=== PATIENT | female | born 1955 | race Caucasian/White ===

== ENCOUNTER 2018-09-28 00:54 | Outpatient (CLI) | payer BC, SELFPAY ==
--- NOTE | 2018-09-28 11:12 | DI.MAMMO_ITS ---
SYMPTOMS/DIAGNOSIS: SCREENING, Z12.31 MAMMOGRAM: Mammograms were interpreted according to the usual protocol including computer analysis with CAD system, tomosynthesis and C view imaging. Comparison is made with exams from 2012 through 2017. The breasts are composed of scattered fibroglandular densities, breast density Category B. No suspicious masses or suspicious microcalcifications are seen. There has been no significant change. IMPRESSION: Category I B, negative mammogram. Yearly screening mammography is recommended. [facility] ASSESSMENT OF FINDINGS: Negative. Category 1. Patient will receive a letter notifying them of these results. BI-RADS category B. There are scattered areas of fibroglandular density.
== END 2018-09-28 01:14 ==
PROVIDERS: PCP Family Medicine; Visit Provider Nurse Practitioner Women's Health
DX: Z12.31 Encounter for screening mammogram for malignant neoplasm of breast (principal)
CPT/HCPCS: 77063; 77067

== ENCOUNTER 2019-04-27 11:16 | Outpatient (CLI) | payer MEDICARE, SELFPAY ==
--- NOTE | 2019-04-27 11:18 | DI.RAD_ITS ---
SYMPTOMS/DIAGNOSIS: HEEL PAIN, M79.673, PAIN IN UNSPECIFIED FOOT RIGHT HEEL: Two views were obtained. There is mild soft tissue swelling over the calcaneus posteriorly. Small osteophytes are present at the sites of attachment of the plantar fascia and Achilles tendon on the calcaneus. Small calcific or ossific radiodensity also noted adjacent to the distal aspect of the Achilles tendon. No other significant bony abnormality seen.
== END 2019-04-27 11:36 ==
PROVIDERS: PCP Family Medicine; Visit Provider Family Medicine
DX: M79.671 Pain in right foot (principal); M79.89 Other specified soft tissue disorders; M25.771 Osteophyte, right ankle
CPT/HCPCS: 73650

== ENCOUNTER 2019-05-27 04:16 | Outpatient (CLI) | payer MEDICARE, SELFPAY ==
[2019-05-27 11:19] LABS: ALT 21 U/L (12-78); AST 14 U/L (15-37); Albumin 3.6 g/dL (3.4-5.0); Alkaline Phosphatase 68 U/L (46-116); Anion Gap 6.7 mmol/L (3-11); BUN 20 mg/dL (7-18); Bilirubin, Total 1.2 mg/dL (0.2-1.0); CO2 31.3 mmol/L (21.0-32.0); CREATININE 0.67 mg/dL (0.55-1.02); Calcium 9.1 mg/dL (8.5-10.1); Calculated LDL 110 mg/dL; Chloride 104 mmol/L (98-107); Cholesterol 213 mg/dL (50-200); Glucose 86 mg/dL (70-100); HDL Cholesterol 91 mg/dL (40-60); Potassium 4.8 mmol/L (3.5-5.1); Sodium 142 mmol/L (136-145); TSH (W/Ref FT4) 2.77 uIU/mL (0.36-3.74); Total Protein 7.4 g/dL (6.4-8.2); Triglyceride 61 mg/dL (30-150)
== END 2019-05-27 04:36 ==
PROVIDERS: PCP Family Medicine; Visit Provider Family Medicine
DX: I10 Essential (primary) hypertension (principal); R00.2 Palpitations
CPT/HCPCS: 36415; 80053; 80061; 83721; 84443

== ENCOUNTER 2019-07-18 00:30 | Outpatient (CLI) | payer MEDICARE, SELFPAY ==
--- NOTE | 2019-07-18 07:07 | MERGEMPI_ITS ---
*[facility]* *[facility]* [address] [place] [address] Myocardial Perfusion Imaging - SPECT Joel protocol Date of study: 07/18/2019 *PATIENT PRESENTATION* Height: 167.6cm (66in) Blood Pressure: Weight: 69.5kg (153lb) BSA: 1.81m^2 Referring physician: Cj Saeed Ordering physician: Belén Hairston Impressions: - Minor arrhythmias in early recovery which resolved appropriately. - Normal myocardial perfusion and contraction after maximal exercise. - Low risk of cardiac events. Summary: 1. Myocardial perfusion imaging: No myocardial perfusion defects noted. 2. The calculated left ventricular ejection fraction after stress: 64%. LV global systolic function is normal. No left ventricular regional motion abnormality. 3. Stress ECG conclusions: The stress ECG is negative. Frequent ventricular ectopy with left bundle branch block with an inferior axis QRS morphology suggestiv of outflow tract origin lasting from 2:35 to 3:28 min post peak stress. 4. Stress: The target heart rate was achieved. The heart rate response to stress is normal. There is a normal resting blood pressure with an appropriate response to stress. The patient experienced no chest pain during stress. Exercise capacity is above normal for age. 5. Treadmill exercise testing was performed using the Joel protocol. The patient exercised for 9 min, to protocol stage 3, to a maximal work rate of 11.6mets. Exercise was terminated due to fatigue. Indication: R07.9, Appropriate Use Criteria: A (Appropriate). History: REASON FOR TESTING: FOR 2 YEARS NOW PATIENT HAS BEEN HAVING MIDSTERNAL CHEST FLUTTERING THAT TURNS INTO MIDSTERNAL CHEST PRESSURE THAT LASTS APPROXIMATELY 5 TO 15 MINUTES THAT GOES AWAY BY ITSELF. SHE STATES THIS WILL HAPPEN ONE TO TWO TIMES PER MONTH AND OCCASIONALLY WHEN LYING DOWN AT NIGHT. SHE ALSO REPORTS AN OCCASIONAL PULSING BEHIND MY NECK WITH DIZZYNESS--FEELS LIKE I'M GOING TO GET A HEADACHE. PATIENT DENIES CHEST PAIN/DISCOMFORT UPON ARRIVAL TO TESTING TODAY. SIGNIFICANT PAST MEDICAL HISTORY: PALPITATIONS SMOKING STATUS: RARELY WHILE IN COLLEGE. EXERCISE ROUTINE: PATIENT WALKS 2 MILES PER DAY AND IS VERY ACTIVE IN AND AROUND HER HOME WITH GARDENING/STACKING WOOD/MOWING LAWN ETC. Risk factors: Family history of coronary artery disease. Dyslipidemia. Cholesterol: 213mg/dl. HDL: 91mg/dl. LDL: 110mg/dl. Triglycerides: 61mg/dl. ALLERGIES: NO KNOWN DRUG ALLERGIES. MEDICATIONS: TRAZODONE 12.5 MG PRN, IBUPROFEN 600 MG PRN. Imaging Technique: Protocol: Joel protocol. Acquisition: Gated SPECT; 1 day - rest/stress. The patient was imaged in the supine position. Attenuation correction used. Isotope administration: - Rest. Tc[99m]-sestamibi. Dose: 10.1mCi. Injection time: 09:45 AM. Injection to stress time: 00:45. - Stress. Tc[99m]-sestamibi. Dose: 30mCi. Injection time: 12:23 PM. 1-2 min before end of exercise Baseline ECG: SINUS RHYTHM. HR 61 BPM. Normal ECG. Stress protocol: + +---+ + !Stage !HR !BP (mmHg) ! + +---+ + !Baseline supine !61 !140/96 (111)! + +---+ + !Baseline standing !73 !124/82 (96) ! + +---+ + !Stage I; 1.7mph, 10degrees; 3 min !112!152/78 (103)! + +---+ + !Stage II; 2.5mph, 12degrees; 3 min !118!162/68 (99) ! + +---+ + !Stage III; 3.4mph, 14degrees; 3 min!133!174/82 (113)! + +---+ + !Recovery; 1 min !113!164/68 (100)! + +---+ + !Recovery; 3 min !85 !160/70 (100)! + +---+ + !Recovery; 6 min !74 !138/64 (89) ! + +---+ + * Stress results: STRESS TEST ENDED IN 9 MINUTES 51 SECONDS DUE TO FATIGUE. NORMAL HEART RATE AND BLOOD PRESSURE RESPONSE TO EXERCISE. MAX HEART RATE: 150. 96 % OF TARGET HEART RATE ACHIEVED. MET'S: 11.56. RARE PVC'S WITH EXERCISE. TRIGEMINY AT 2 MINUTES 35 SECONDS OF RECOVERY, THEN QUADRAGEMINY AT 3 MINUTES 17 SECONDS OF RECOVERY, THEN SINUS RHYTHM AT 3 MINUTES 28 SECONDS OF RECOVERY. NO ANGINA. NO SIGNIFICANT ST SEGMENT CHANGES. ABOVE AVERAGE FUNCTIONAL CAPACITY. Maximal heart rate during stress was 150bpm (97% of maximal predicted heart rate). The maximal predicted heart rate was 155bpm. The target heart rate was achieved. The heart rate response to stress is normal. There is a normal resting blood pressure with an appropriate response to stress. The rate-pressure product for the peak heart rate and blood pressure was 81722jg Hg/min. The patient experienced no chest pain during stress. Exercise capacity is above normal for age. Stress ECG: The stress ECG is negative. Frequent ventricular ectopy with left bundle branch block with an inferior axis QRS morphology suggestiv of outflow tract origin lasting from 2:35 to 3:28 min post peak stress. Myocardial perfusion: Imaging information: gated. The image quality was good. Left ventricular size is normal. No myocardial perfusion defects noted. Ventricular Function (Wall Motion): The calculated left ventricular ejection fraction after stress: 64%. LV global systolic function is normal. No left ventricular regional motion abnormality. Study data: Cj Saeed MD supervised and was readily available during the procedure. This study was interpreted by [facility]. Study status: Routine. Consent: The risks, benefits, and alternatives to the procedure were explained to the patient and informed consent was obtained. Procedure: Initial setup. A baseline ECG was recorded. Surface ECG leads and manual cuff blood pressure measurements were monitored. Heart sounds: Normal. Lung sounds: Normal. Treadmill exercise testing was performed using the Joel protocol. The patient exercised for 9 min, to protocol stage 3, to a maximal work rate of 11.6mets. Exercise was terminated due to fatigue. Study completion: All catheters inserted during the procedure were removed. The patient tolerated the procedure well and was discharged from the lab. Discharge: The patient left the laboratory in stable condition. Birthdate: Patient birthdate: 1955. Sex: Gender: female. Study date: Study date: 07/18/2019. Study time: 00:01 AM. Signature Documentation: - The imaging portion of this study was interpreted by Nuclear Fire Coordinator Cj Saeed MD. - The Stress ECG portion of this study was interpreted by Cj Saeed MD. Electronically signed by Cj Saeed 07/18/2019 13:38
== END 2019-07-18 00:50 ==
PROVIDERS: PCP Family Medicine; Visit Provider Family Medicine
DX: R07.9 Chest pain, unspecified (principal); R00.2 Palpitations; E78.5 Hyperlipidemia, unspecified; Z82.49 Family history of ischemic heart disease and other diseases of the circulatory system
CPT/HCPCS: 78452; 93016; 93018; 93017

== ENCOUNTER → 2019-08-08 10:22 | Outpatient (BNVA) | payer MEDICARE, SELFPAY | PROVIDERS: PCP Family Medicine; Referring Provider Family Medicine; Visit Provider Physical Therapy Assistant | DX: R10.13 Epigastric pain (principal); Z12.11 Encounter for screening for malignant neoplasm of colon | CPT/HCPCS: 99213 ==

== ENCOUNTER 2019-08-18 09:14 | Day surgery (SDC) | payer MEDICARE, SELFPAY ==
[2019-08-18 09:36] VITALS: BP 105/42; PULSE 68; RESP 15; TEMP 36.8; O2SAT 98
[2019-08-18] MEDS: Lactated Ringers 1,000 ML 80 ML IV (10:23)
[2019-08-18] MEDS: Lidocaine 2% Viscous 15 ML CUP (11:46)
--- NOTE | 2019-08-18 11:53 | STOM_PTH ---
PATIENT: Meera Gill LOC: [facility] U#:[id number] AGE/SX: 63/F ROOM: RE08/18/[address]: Elsa Fernández : 1955 BED: DIS: 08/18/2019 SPEC #: [id number] RECD: 08/18/19 13:07 STATUS: DWAYNE RE #: [id number] RICK: 08/18/19 11:[address]: Elsa Fernández DEPT: Surgical Specimen RECD BY: Meera Byrne ENTERED: 08/18/19 13:08 SP TYPE: STOMACH OTHR DR: Belén Hairston MD, DC Tissues: 1 - BIOPSY BOWEL 2 - STOMACH BIOPSY 3 - STOMACH BIOPSY 4 - ESOPHAGUS BIOPSY 5 - ESOPHAGUS BIOPSY Procedures: GROSS AND MICRO LEVEL 4 Comments: [id number]
--- NOTE | 2019-08-18 12:28 | W.PM.DSUDISC ---
Discharge Plan Disposition Patient Disposition: HOME Condition: Good Discharge Details Reason For Visit: stomach and colon scope w/ biopsy Attending Provider: Elsa Fernández Primary Care Provider: Belén Hairston Home Meds and New Rx's Prescriptions: Continued trazodone 50 mg tablet 25 mg PO TID PRNRF: 0 Discontinued polyethylene glycol 3350 17 gram/dose powder 238 g PO ONCE Qty: 238 RF: 0 bisacodyl [Dulcolax (bisacodyl)] 5 mg tablet,delayed release (DR/EC) 5 mg PO ONCE Qty: 4 RF: 0 Discharge Orders Discharge Orders: Discharge Order (Routine); Ordered 08/18/19 Ordered By: Elsa Fernández DS: Diagnosis Discharge Diagnosis (1) Non-cardiac chest pain: Status: Acute (2) Colon cancer screening: Status: Acute
--- NOTE | 2019-08-18 12:32 | W.PM.ENDDOP ---
Date of service: 08/18/19 Time of Service: 12:32 Endoscopy Report DATE OF PROCEDURE: 08/18/19 PRE-OP DIAGNOSIS: non cardiac chest pain/colon cancer screen POST-OP DIAGNOSIS: same PROCEDURE: egd adb FLOR s SURGEON: Elsa Fernández ANESTHESIA: GETA ESTIMATED BLOOD LOSS: 1 PATHOLOGY: other COMPLICATIONS: None DISPOSITION: same day COLONOSCOPY RETRACTION TIME: 10 mins PROCEDURE DESCRIPTION: After informed consent was obtained the patient was take to the procedure room and placed in a supine position. Monitors were applied and a time out was done. The patients name, date of , procedure type, allergies to medications and metal in their body was reviewed. A bite block was placed and the patient was sedated. Once sedated and comfortable the gastroscope was advanced through the oropharynx which was grossly normal into the esophagus. The proximal and mid-esophagus were nl. In the distal esophagus there was nl noted-there is no stricture or hiatal hernia. The scope was advanced into the stomach and through the pylorus into the 3rd portion of the duodenum. The duodenum was noted to be nl. Biopsies were done-all specimens are retrieved and no bleeding is noted.. The scope was retracted back into the stomach and biopsies were done to rule out H. pylori. There were no ulcers. The scope was retroflexed. The cardia and fundus were noted to be normal. There no a hiatal hernia noted. The scope was retracted back into the esophagus and biopsies were done of the GE junction to rule out Frost's. The Z line was regular. This is essentially a nl exam- path pd. The scope was exchanged. Rectal exam was done. External exam was normal. Internal exam revealed a normal sphincter tone and no palpable masses, a few small old ext. hemorrhoidal tags. The scope was then introduced and retrofelexed. no internal hemorrhoids were identified. The scope was then advanced to the cecum moderate difficulty. The colon is extremely tortuous . the TI and appendiceal orifice were identified. The prep was good . The scope was then slowly retracted over 10 minutes back into the rectum. There are no polyps, diverticuli or AVMs identified. The scope was removed and the patient was woken up and taken back to Same day surgery in stable condition. The patient tolerated the procedure well and there were no immediate complications. Follow up: The patient should follow up in 10 years unless they develop changes in bowel habits or other new gastrointestinal complaints. Pt will receive a letter in 2-3 wks w/ Bx results
[2019-08-18 13:15] VITALS: BP 110/32; BP 128/58; PULSE 59; PULSE 61; RESP 17; RESP 18; TEMP 36.2; TEMP 36.3; O2SAT 100; O2SAT 99
== END 2019-08-18 14:00 | disposition home or self-care (01) ==
PROVIDERS: PCP Family Medicine; Visit Provider Surgery
PROC: (CPT 43239; principal; 2019-08-18 10:00)
DX: Z12.11 Encounter for screening for malignant neoplasm of colon (principal); K63.89 Other specified diseases of intestine; R10.13 Epigastric pain; K21.0 Gastro-esophageal reflux disease with esophagitis; F10.10 Alcohol abuse, uncomplicated
CPT/HCPCS: 43239; G0121; 88305; J2250; J3010

== ENCOUNTER 2020-03-09 02:12 | Outpatient (CLI) | payer MEDICARE, SELFPAY | END 2020-03-09 02:32 | PROVIDERS: PCP Family Medicine; Visit Provider Family Medicine | DX: R00.0 Tachycardia, unspecified (principal) | CPT/HCPCS: 93225 ==

== ENCOUNTER 2020-03-09 02:26 | Outpatient (CLI) | payer MEDICARE, SELFPAY ==
[2020-03-09 10:41] LABS: HCT 42.3 % (36.0-46.0); HGB 13.9 g/dL (12.0-15.5); Mean Corp. HGB Concentration 32.9 g/dL (32.0-36.0); Mean Corpuscular Hemoglobin 28.7 pg (27.0-33.0); Mean Corpuscular Volume 87.2 fL (80-95); Mean Platelet Volume 9.4 fL (8.0-11.0); Platelet Count 236 x1000/uL (130-400); RBC 4.85 m/cumm (4.00-5.20); RBC Distribution Width 13.3 % (11.7-14.6); White Blood Cell Count 5.21 k/cumm (4.4-10.8)
[2020-03-09 11:43] LABS: ALT 21 U/L (14-59); AST 18 U/L (15-37); Albumin 3.6 g/dL (3.4-5.0); Alkaline Phosphatase 79 U/L (46-116); Anion Gap 6.4 mmol/L (3-11); BUN 15 mg/dL (7-18); CO2 29.6 mmol/L (21.0-32.0); Calcium 9.2 mg/dL (8.5-10.1); Chloride 102 mmol/L (98-107); Glucose 93 mg/dL (74-106); Potassium 4.1 mmol/L (3.5-5.1); Sodium 138 mmol/L (136-145); TSH (W/Ref FT4) 2.37 uIU/mL (0.36-3.74); Total Protein 7.5 g/dL (6.4-8.2)
== END 2020-03-09 02:46 ==
PROVIDERS: PCP Family Medicine; Visit Provider Family Medicine
DX: R00.0 Tachycardia, unspecified (principal)
CPT/HCPCS: 36415; 80053; 85027; 84443; 93225

== ENCOUNTER 2020-03-13 10:34 | Outpatient (CLI) | payer MEDICARE, SELFPAY ==
--- NOTE | 2020-03-13 12:32 | W.HOLTRPT ---
Date of service: 03/13/20 Time of Service: 12:32 Holter Monitor Report Holter Monitor Note: There is a 48-hour Holter monitor ordered for indication of tachycardia. ?The patient was in normal sinus rhythm for the majority of the recording. Average heart rate 70 bpm ?There were 16 episodes of supraventricular tachycardia with the longest lasting 6 minutes. ?There were no episodes of ventricular tachycardia and occasional (1.5%) single ventricular ectopic beats. ?There was no evidence of atrial fibrillation, no pauses greater than 3 seconds and no evidence of high degree heart block. ?Patient diary events were associated with supraventricular tachycardia as well as sinus rhythm with PVCs.
== END 2020-03-13 10:54 ==
PROVIDERS: PCP Family Medicine; Visit Provider Family Medicine
DX: R00.0 Tachycardia, unspecified (principal); I47.1 Supraventricular tachycardia; I49.3 Ventricular premature depolarization
CPT/HCPCS: 93227; 93226

== ENCOUNTER 2020-04-19 02:57 | Outpatient (CLI) | payer MEDICARE, SELFPAY ==
--- NOTE | 2020-04-19 08:30 | DI.US_ITS ---
APPROVED REPORT EXAM: Comprehensive 2D, Doppler, and color-flow Echocardiogram Patient Location: Out-Patient Brim Blocker: Tamanna Yap RDCS (AE) Indications: Murmur Other Information Study Quality: Good Conclusion Left Ventricle : The left ventricle is normal size. The left ventricular systolic function is normal. The left ventricular ejection fraction is within the normal range. There is normal left ventricular wall thickness. There is normal LV segmental wall motion. The left ventricular diastolic function is normal. LVEF is 45-50%. Right Ventricle : The right ventricle is normal size. The right ventricular systolic function is norm al. The RVSP is 19.9 mmHg. Atria : The left atrium size is normal. The right atrium size is normal. Valves: There are no hemodynamically significant valvular lesions. Pericardium : Trivial to Small circumferential pericardial effusion. Great Vessels : IVC is normal in size and collapses >50% with inspiration. There is no prior study available for comparison. Wall motion Left Ventricle The left ventricle is normal size. The left ventricular systolic function is normal. The left ventric ular ejection fraction is within the normal range. There is normal left ventricular wall thickness. T here is normal LV segmental wall motion. The left ventricular diastolic function is normal. There is no ventricular septal defect visualized. LVEF is 45-50%. Right Ventricle The right ventricle is normal size. The right ventricular systolic function is normal. The RVSP is 19 .9 mmHg. Atria The left atrium size is normal. The right atrium size is normal. The interatrial septum is intact wit h no evidence for an atrial septal defect. Aortic Valve The aortic valve is normal in structure. There is no aortic valvular stenosis. No aortic regurgitatio n is present. Mitral Valve There is mitral annular calcification. No evidence of mitral valve stenosis. Trace mitral regurgitati on. Tricuspid Valve The tricuspid valve is normal in structure. There is no tricuspid valve stenosis. Trace to mild tricu spid regurgitation. Pulmonic Valve Pulmonic valve is not well visualized. There is no pulmonic valvular stenosis. There is no pulmonic v alvular regurgitation. Great Vessels The aortic root is normal in size. The ascending aorta is normal in size. Aortic arch is normal in ca liber. IVC is normal in size and collapses >50% with inspiration. Pericardium Trivial to small circumferential pericardial effusion. 2D Dimensions IVSD d PLAX 0.93 cm F: 0.6-1.0 LV Vol A2C d MOD 88.4 mL LVPW d PLAX 0.93 cm F: 0.6 - 1.0 LV Vol A4C d MOD 85.7 mL LVID d PLAX 4.45 cm F: 3.8 - 5.2 LA vol/ BSA A2C s A-L 22.0 mL/m2 LVDs 3.10 cm F: 2.2 - 3.5 LA vol/ BSA A4C s A-L 22.0 mL/m2 Ao Root d 2.32 cm F: 2.7 - 3.3 LA Vol/ BSA Biplane s A-L 23.5 mL/m2 RA Area A4C 15.16 cm2 LA Area A4C s MOD 15.66 cm2 RA Vol/ BSA A4C s A-L 21.1 mL/m2 LA Area A2C s MOD 14.65 cm2 Ao Asc Diam d 2.97 cm F: 2.3 - 3.1 LV EF A4C MOD 45.5 % LV EF Teichholz 57.7 % LV EF A2C MOD 49.1 % LVEF (Swan's) 47.57 % F: 54 - 74 LV EF Biplane MOD 47.6 % LV Volume 72.01 mL F: 46 - 106 SV 43.78 mL LV Volume Index 40.68 mL/m2 F: 29 - 61 SV Index 24.73 mL/m2 LV Vol Biplane MOD 92.0 mL FS 30.15 % M-Mode TAPSE 1.78 cm (M/F) >1.7 LV Diastology MV E' medial 0.078 (>0.07 m/s) E/A Ratio 1.2 LV E/e MED 7.40 (<14) MV E Vmax 0.58 (0.4-1.3 m/s) MV E' lateral 0.090 (>0.1 m/s) MV A Vmax 0.50 (0.4-1.3 m/s) LV E/e LAT 6.50 (<14) MV E/A Ratio 1.13 MV E/E' medial 7.45 MV E/E' lateral 6.50 Aortic Valve LVOT Area 3.40 cm2 AoV Area Vmax 2.58 cm2 LVOT Vmax 1.13 m/s AoV Area/ BSA (Vmax) 1.46 cm2/m2 LVOT Mean Stephen. 0.77 m/s MARY ALICE Mean Stephen. 2.41 cm2 LVOT Peak Grad 5.1 mmHg MARY ALICE Mean Stephen. Index 1.36 cm2/m2 LVOT Mean Grad 2.7 mmHg LVOT VTI 0.237 m LVOT Diam s 2.05 cm AoV Vmax 1.49 m/s Velocity Ratio 0.75 AoV Mean Stephen. 1.09 m/s AoV Peak Grad 8.9 mmHg LVOT SV 80.68 mL AoV Mean Grad 5.1 mmHg AoV VTI 0.278 m AoV Area VTI 2.90 cm2 AoV Area/ BSA (VTI) 1.64 cm/m2 Mitral Valve MV DT 203 (160-240 msec) MV PHT 59 msec MV Area PHT 3.74 cm2 Pulmonary Valve PV Vmax 0.68 (0.5-1.5 m/s) RVOT Peak Gr. 1.33 mmHg PV Peak Grad 1.9 mmHg RVOT Mean Gr. 0.55 mmHg PV Mean Grad 1.3 mmHg RVOT VTI 0.131 m PV VTI 0.146 m RVOT Vmax 0.58 m/s Tricuspid Valve TR Peak Grad 16.8 mmHg TR Vmax 2.05 m/s RA Pressure 3.00 mmHg RVSP (TR) 19.9 mmHg
== END 2020-04-19 03:17 ==
PROVIDERS: PCP Family Medicine; Visit Provider Family Medicine
DX: R01.1 Cardiac murmur, unspecified (principal); I47.1 Supraventricular tachycardia; R00.0 Tachycardia, unspecified
CPT/HCPCS: 93306

== ENCOUNTER 2020-04-19 03:02 | Outpatient (CLI) | payer MEDICARE, SELFPAY ==
--- NOTE | 2020-04-19 12:05 | DI.MAMMO_ITS ---
EXAM: MAMMO SCREENING CLINICAL HISTORY: screening,z12.39 TECHNIQUE: Mammograms were interpreted according to the usual protocol including computer analysis w [employer] CAD system, tomosynthesis and C-view imaging. COMPARISON: 2009 through 2017 FINDINGS: The breasts are composed of scattered fibroglandular densities, Breast Density category B. No suspicious masses or suspicious microcalcifications are seen. No skin thickening or abnormal axillary lymph nodes are seen. There has been no significant change from prior exams. IMPRESSION: BI-RADS Category 1 - Negative Yearly screening mammography is recommended. Breast Density Category B, scattered fibroglandular densities.
== END 2020-04-19 03:22 ==
PROVIDERS: PCP Family Medicine; Visit Provider Family Medicine
DX: Z12.31 Encounter for screening mammogram for malignant neoplasm of breast (principal)
CPT/HCPCS: 77063; 77067

== ENCOUNTER 2020-05-09 16:40 | Emergency (ER) | payer MEDICARE, SELFPAY ==
[2020-05-09 16:52] VITALS: BP 118/79; PULSE 77; RESP 18; TEMP 36.5; O2SAT 95
--- NOTE | 2020-05-09 17:13 | ED.GENADUL_ITS ---
Discharge Plan Disposition Patient Disposition: HOME Condition: Stable Discharge Details Chief Complaint: EyeProblem Clinical Impression: Allergic reaction to insect sting Primary Care Provider: Belén Hairston ED Provider: Gunner Cobb Home Meds and New Rx's Prescriptions: New prednisone 20 mg tablet 40 mg PO DAILY 5 Days Qty: 10 RF: 0 Continued diphenhydramine HCl [Benadryl] 25 mg Capsule 25 mg PO PRN PRNRF: 0 trazodone 50 mg tablet 25 mg PO TID PRNRF: 0 Discharge Instructions Additional Instructions: Apply cool compress to area to reduce swelling. I recommend you take famotidine available [id number] 20 mg twice a day for approximately 5 days time. Please take prednisone as prescribed. You may continue to use Benadryl 25 to 50 mg, particularly at bedtime to reduce the itching. Return for difficulty swallowing, increased swelling, or any other acute co ncerns. Medical Decision Making 64-year-old female with right periorbital edema after insect/hymenoptera bite yesterday. No systemic reaction. No oropharyngeal involvement. The globe of the eye is unremarkable. We will treat with a small burst of steroid, antihistamine. She will use cold compresses at home. She understands homecare as well as indications to seek reevaluation. HPI General Mode of arrival: ambulatory . Date/Time Provider Initiated Documentation: 05/09/20 16:40 . Limitations to Documentation: no limitations . Information obtained by: patient . History of Present Illness 64 year old F presents to the emergency department with the chief complaint of Right eye swelling after bee sting yesterday, described as moderate, Quality is described as constant, and is localized to the eyes and right. Patient reports no radiation. Patient started experiencing this hour(s) and it has been constant. No relieving factors improve symptom(s), No exacerbating factors reported . Patient notes denies fever/chills and headaches. Patient did receive the following treatments prior to arrival, other (Benadryl) Related Data Home Medications Medication Instructions Recorded Confirmed trazodone 25 mg PO TID PRN 08/15/19 03/15/20 diphenhydramine HCl [Benadryl] 25 mg PO PRN PRN 05/09/20 05/09/20 prednisone 40 mg PO DAILY 5 Days #10 tab 05/09/20 Previous Rx's Medication Instructions Recorded prednisone 40 mg PO DAILY 5 Days #10 tab 05/09/20 Allergies Allergy/AdvReac Type Severity Reaction Status Date / Time cat dander Allergy itching Verified 05/09/20 16:56 eyes, sneeze, General Stated Complaint: EyeProblem TESSA: 4 Review of Systems Narrative: No significant change to vision. No other injury. No difficulty swallowing or breathing. 4 systems reviewed and otherwise negative [facility] Medical History Colon cancer screening (Acute) Elbow tendinitis (Inactive) right elbow; secondary to weight lifting Endometriosis (Inactive) Non-cardiac chest pain (Acute) Palpitations (Inactive) worse in the evening; Holter showed PAC,PVC,PST; event monitor cancelled by patient Right upper quadrant abdominal tenderness (Inactive) neg. U/S Surgical History (Updated 08/18/19 @ 09:35 by Precious Matias RN) History of bilateral ligation of fallopian tubes (Inactive) History of colonoscopy (Chronic) Family History Mother , age 91 No problems noted. Father No problems noted. Sister Depression Substance abuse Brother No problems noted. Maternal Grandfather , age 80 Alcohol abuse Cancer Paternal Grandfather , 70? Cancer [place] lung Maternal Grandmother , 81? Cancer Paternal Grandmother , age 91 No problems noted. Social History (Updated 08/08/19 @ 11:00 by CHRISTINA Mercado) Smoking/Tobacco Use Status: Former Tobacco Use Tobacco: How many years used: 2 Second Hand Exposure: Yes Alcohol Intake: current Alcohol Intake frequency: a few times a week Alcohol type: hard liquor Details: She is currently working on cutting back Drug use: Occasionally Substance use type: marijuana Caregiver/Support person: No Household members: spouse Housing: house Communication Needs: None Do you need help understanding health information?: Never Pets and animals: Yes Pets and animals: dog(s) Sexually active: Yes Do you think of yourself as: straight/heterosexual Current gender identity: female What is your relationship status?: How often do you talk on the phone with friends or family?: three or more times per week How often do you get together with friends or relatives?: twice per week How often do you attend hindu or uatsdin services?: decline to answer Do you belong to any clubs or organized social groups?: decline to answer Panel score (0-1 are the most socially isolated patients): 2 What type of physical activity do you participate in: walking, bicycling and other Duration: 30-45 minutes/day Frequency: 5-6 times per week Bonny/Orthodox: Jehovah'S Witness Special bonny needs: No Agree to transfusion: No Do you feel safe at home: Yes Do you feel safe in your relationship?: Yes Exam Narrative Exam Narrative: GEN: awake, alert, oriented 3. Pleasant, well groomed, interactive. HEAD: Normocephalic, atraumatic ENT: Mucous membranes moist, oropharynx unremarkable, External ear exam unremarkable EYES: PERRL, EOMI. right periorbital edema with mild erythema. Probable envenomation site right upper lateral eyelid. NECK: Full ROM, no ALEKSANDER, no menigismus Neuro: Grossly normal neurologic exam, conversant, interactive. Psych: Speech fluent, thoughts congruent, affect normal Course Vital Signs Vital signs: Vital Signs Temperature 36.5 C 05/09/20 16:52 Pulse 77 05/09/20 16:52 Respiratory Rate 18 05/09/20 16:52 Blood Pressure 118/79 05/09/20 16:52 Pulse Oximetry 95 05/09/20 16:52 Temperature 36.5 C 05/09/20 16:52 Temperature Source Temporal Artery Scan 05/09/20 16:52 Pulse 77 05/09/20 16:52 Respiratory Rate 18 05/09/20 16:52 Blood Pressure 118/79 05/09/20 16:52 Blood Pressure Position Sitting 05/09/20 16:52 Pulse Oximetry 95 05/09/20 16:52 Oxygen Delivery Method Room Air 05/09/20 16:52 Oxygen Flow Rate 0 05/09/20 16:52
[2020-05-09 17:32] VITALS: BP 118/79; PULSE 77; RESP 18; TEMP 36.5; O2SAT 95
[2020-05-09] MEDS: predniSONE 20 MG TAB 60 MG PO (17:32)
== END 2020-05-09 17:34 | disposition home or self-care (01) ==
PROVIDERS: Emergency Provider Emergency Medicine; PCP Family Medicine
DX: T63.441A Toxic effect of venom of bees, accidental (unintentional), initial encounter (principal); H05.221 Edema of right orbit
CPT/HCPCS: 99283; J7512

== ENCOUNTER 2021-06-19 02:43 | Outpatient (CLI) | payer MEDICARE, SELFPAY ==
[2021-06-19 15:45] LABS: Hemoglobin A1C 5.4 % (<5.7)
[2021-06-19 16:37] LABS: ALT 19 U/L (14-59); AST 17 U/L (15-37); Albumin 3.7 g/dL (3.4-5.0); Alkaline Phosphatase 65 U/L (46-116); Anion Gap 6.8 mmol/L (3-11); BUN 14 mg/dL (7-18); Bilirubin, Total 0.7 mg/dL (0.2-1.0); CO2 32.2 mmol/L (21.0-32.0); CREATININE 0.8 mg/dL (0.55-1.02); Calcium 9.1 mg/dL (8.5-10.1); Chloride 105 mmol/L (98-107); Glucose 76 mg/dL (74-106); Potassium 3.7 mmol/L (3.5-5.1); Sodium 144 mmol/L (136-145); Total Protein 7.4 g/dL (6.4-8.2)
== END 2021-06-19 02:44 | disposition home or self-care (01) ==
LOC: LBO 02:43
PROVIDERS: PCP Family Medicine; Visit Provider Family Medicine
DX: E11.9 Type 2 diabetes mellitus without complications (principal); R00.0 Tachycardia, unspecified; Z00.00 Encounter for general adult medical examination without abnormal findings
CPT/HCPCS: 36415; 80053; 83036

== ENCOUNTER → 2022-05-14 09:36 | Outpatient (CLI) | payer MEDICARE, SELFPAY ==
--- NOTE | 2022-05-14 09:15 | DI.RAD_ITS ---
Exam(s) XR HIP LT 1V EXAM: XR HIP LT 1V CLINICAL HISTORY: b/l hip pain M25.552 PAIN LEFT HIP. TECHNIQUE: 2D digital imaging was performed. COMPARISON: No exams were available for comparison FINDINGS: Single lateral view of the left hip: No evidence of fracture. No joint space narrowing. No osteophytes. Bone density normal. IMPRESSION: DATA REPOSITORY: RADIATION DOSE DELIVERED:
--- NOTE | 2022-05-14 09:15 | DI.RAD_ITS ---
Exam(s) XR HIP RT COMPLETE AP PELVIS EXAM: XR HIP RT COMPLETE AP PELVIS CLINICAL HISTORY: biateral hip pain M25.551 PAIN RT HIP. TECHNIQUE: 2D digital imaging was performed. COMPARISON: No exams were available for comparison FINDINGS: There is a large calcific density just right of center of the pelvis measuring 5 x 5 cm, most probabl y a calcified uterine fibroid. No evidence of pelvic nor hip fractures. No hip joint space narrowing. Lateral view of the right hi p does not reveal osteophytes. Also no bony excrescence to suggest CAM-type DB. IMPRESSION: No significant osseous findings in the pelvis and right hip. 5 cm intrapelvic calcification which is probably within a large uterine fibroid. DATA REPOSITORY: RADIATION DOSE DELIVERED:
== END ==
PROVIDERS: PCP Family Medicine; Visit Provider Family Medicine
DX: M25.551 Pain in right hip (principal); M25.552 Pain in left hip; M61.48 Other calcification of muscle, other site
CPT/HCPCS: 73501; 73502

== ENCOUNTER → 2022-05-26 01:41 | Outpatient (CLI) | payer MEDICARE, SELFPAY ==
--- NOTE | 2022-05-26 08:30 | DI.MAMMO_ITS ---
Exam(s) MAMMO SCREENING EXAM: MAMMO SCREENING CLINICAL HISTORY: screening, Z12.39 TECHNIQUE: Bilateral full field digital CC and MLO mammographic images were obtained with 3D tomosyn thesis and utilizing computer aided detection (CAD). COMPARISON: Available for comparison. FINDINGS: Masses/Architectural Distortion: None seen. Microcalcifications: No suspicious pleomorphic-type are seen. Skin Thickening/Nipple Retraction: None. IMPRESSION: 1. No significant interval change with no specific features of malignancy noted. 2. Unless there is more urgent need, screening mammography is recommended, as per [employer] guidelines. BI-RADS Category 1 - Negative Breast Density - Category B - Scattered areas of fibroglandular density Breast density category C or D implies that the patient has dense breast tissue. Dense breast tissue is very common and is not abnormal but dense breast tissue can make it harder to find cancer on a ma mmogram. Also, dense breast tissue may increase their breast cancer risk. This information about the result of the mammogram report was provided to the patient to raise their awareness. Use this report when you speak with the patient about their risks for breast cancer, which includes their family hist ory. At that time, you may recommend for more screening tests (Ultrasound or MRI) as they might be us eful based on their risk. A negative radiographic report should not delay biopsy if a dominant or clinically suspicious mass is present. Up to ten percent of cancers are not identified on mammography. A negative report may reinforce clinical impression. Adenosis and dense breasts may obscure an underlying neoplasm. False positive reports average 6 to 10%. Patient will receive a letter notifying them of these results.
== END ==
PROVIDERS: PCP Family Medicine; Visit Provider Family Medicine
DX: Z12.31 Encounter for screening mammogram for malignant neoplasm of breast (principal)
CPT/HCPCS: 77063; 77067

== ENCOUNTER 2022-06-17 23:12 | Emergency (ER) | payer MEDICARE, SELFPAY ==
--- NOTE | 2022-06-17 23:00 | RT.EKG_ITS ---
APPROVED REPORT Exam: Resting ECG Reason for Exam: heavy chest Patient Location: E HR:60 bpm ECG Measurements Heart Rate 60 AXIS NJ 190 P 35 QRSd 94 QRS 62 QT 415 T 52 QTc 415 Conclusion Sinus rhythm...normal P axis, V-rate 60- 99 Probable left atrial enlargement...P >50mS, <-0.10mV V1 Low voltage, precordial leads...precordial leads <1.0mV Physician: inverted t wave in V1. no stemi
[2022-06-17 23:16] VITALS: BP 127/60; PULSE 73; RESP 16; TEMP 36; O2SAT 97
[2022-06-17] MEDS: Normal Saline 1,000 ML 1000 ML IV (23:30)
[2022-06-17] MEDS: Ondansetron 4 MG/2 ML VIAL IVP (23:30)
[2022-06-17 23:35] LABS: Abs Immature Grans 0.02 10^3/uL (0.0-0.06); Absolute Basophil Count 0.02 10^3/uL (0.0-0.2); Absolute Eosinophil Count 0.02 10^3/uL (0.0-0.7); Absolute Lymphocyte Count 1.08 10^3/uL (1.2-3.4); Absolute Monocyte Count 0.28 10^3/uL (0.1-0.8); Absolute Neutrophil Count 7.09 10^3/uL (1.2-6.7); Basophils % 0.2; Eosinophils % 0.2; HCT 38.7 % (36.0-46.0); HGB 12.7 g/dL (11.2-15.7); Immature Grans % 0.2; Lymphocytes % 12.7; MCH 28.5 pg (27.0-33.0); MCHC 32.8 % (32.0-36.0); MCV 87 fL (80-95); MPV 9.5 fL (8.0-11.0); Monocytes % 3.3; Neutrophils % 83.4; Platelet Count 178 10^3/uL (130-400); RBC 4.46 10^6/uL (3.93-5.22); RDW 12.7 % (11.7-14.6); RDW-SD 40.4 fL; WBC 8.51 10^3/uL (4.4-10.8)
--- NOTE | 2022-06-17 23:59 | W.ED.GENAD ---
Discharge Plan Disposition Patient Disposition: HOME Condition: Good Discharge Details Clinical Impression: Adverse effect of cannabis, Nausea & vomiting Primary Care Provider: Belén Hairston ED Provider: Derik Clayton Home Meds and New Rx's Prescriptions: No Action Shingrix (PF) 50 mcg/0.5 mL suspension for reconstitution 0.5 ml IM ONCE Qty: 1 1RF Rx Instructions: as a single dose. Repeat in 2 months estradiol [Yuvafem] 10 mcg tablet 10 mcg vaginal .3 times weekly Qty: 36 4RF Discharge Instructions Instructions: Acute Nausea and Vomiting (ED) Additional Instructions: At this time your symptoms have notably improved. They were likely secondary to the edible marijuana use that was consumed. It would probably be best to avoid this in the future. Please take the Zofran as needed for nausea. If you notice any worsening of your symptoms, or any new symptoms such as vomiting, diarrhea, fever, chills, shortness of breath, chest pain, numbness, weakness, or fainting , please return immediately to the emergency department for reevaluation. Please follow up with your primary care provider as soon as possible for reassessment and reevaluation. As always, it was a pleasure participating in your medical care today. Referrals: Belén Hairston MD, [place] [Primary Care Provider] - Medical Decision Making 66-year-old female with a past medical history of estradiol use, off who presents today for evaluation of nausea, vomiting, dizziness after eating edibles. Patient states that she has had a notable amount of stress in her life over the last few weeks, and this evening she and her sawed and ate a marijuana laced muffin. They both have the same amount. He was relatively unaffected, however about an hour after she ate the edible she began having nausea, vomiting and notable dizziness. She vomited for the next 2 to 3 hours, and was unable to get up or walk around secondary to this. She admits to a small amount of chest pressure, but denies any chest pain. She denies any headache or vision changes. Dizziness is made worse when she looks around rapidly. Nausea and vomiting is made worse when she stands up quickly. She states that she has had edible marijuana in the past a few years ago, and she had similar symptoms, but they were not as severe as this episode. She also states that she ate more on this episode that she has in the past. Physical exam demonstrates a well-appearing female, mucous membranes are notably dry. No neurologic deficits, no vertical or rotatory nystagmus. No horizontal nystagmus. No signs of acute neurologic deficit. Vital signs stable. We will rehydrate the patient, give Zofran, monitor for abnormality. Screening EKG shows no evidence of STEMI or ST changes. Troponin is normal. Symptoms inconsistent with ACS. Will monitor closely and reassess 12:27 AM Patient is sleeping comfortably. Vital signs remained stable. Laboratory work-up demonstrates no electrolyte abnormalities, lipase is normal. Troponin normal, EKG benign. Thyroid function normal. Patient and have refused CT scan at this time. They understand the risks and benefits of this decision we will continue to rehydrate and monitor close 1:19 AM Patient is feeling much better. Nausea and vomiting has resolved. Patient has been rehydrated. Laboratory work-up is unremarkable. Patient feels well and would like to go home. I do feel that this is appropriate at this time. No evidence of focal neurologic deficit on exam. Will give Zofran for home use as needed. I have extensively reviewed the treatment plan and discharge instructions with the patient and their family. I have addressed all patient concerns at this time. The patient and family was made aware of what symptoms to monitor for that would warrant a return to the emergency department. Discussed the plan with the patient and family, they demonstrate verbal understanding and agreement with our assessment and plan at this time. The documentation in this chart was dictated using [employer] dictation software. Please excuse any dictation errors. HPI General Date/Time Provider Initiated Documentation: 06/17/22 23:20. HPI Narrative: 66-year-old female with a past medical history of estradiol use, off who presents today for evaluation of nausea, vomiting, dizziness after eating edibles. Patient states that she has had a notable amount of stress in her life over the last few weeks, and this evening she and her sawed and ate a marijuana laced muffin. They both have the same amount. He was relatively unaffected, however about an hour after she ate the edible she began having nausea, vomiting and notable dizziness. She vomited for the next 2 to 3 hours, and was unable to get up or walk around secondary to this. She admits to a small amount of chest pressure, but denies any chest pain. She denies any headache or vision changes. Dizziness is made worse when she looks around rapidly. Nausea and vomiting is made worse when she stands up quickly. She states that she has had edible marijuana in the past a few years ago, and she had similar symptoms, but they were not as severe as this episode. She also states that she ate more on this episode that she has in the past. Related Data Home Medications Medication Instructions Recorded Confirmed varicella-zoster glycoE vacc-[id number] 0.5 ml IM ONCE #1 ea 07/02/21 05/13/22 adj(PF) 50 mcg/0.5 mL IM susp, kit (Shingrix (PF)) estradiol 10 mcg vaginal tablet 10 mcg vaginal .3 times weekly #36 05/13/22 06/17/22 (Yuvafem) tabs Previous Rx's Medication Instructions Recorded varicella-zoster glycoE vacc-AS01B 0.5 ml IM ONCE #1 ea 07/02/21 adj(PF) 50 mcg/0.5 mL IM susp, kit (Shingrix (PF)) estradiol 10 mcg vaginal tablet 10 mcg vaginal .3 times weekly #36 05/13/22 (Yuvafem) tabs Allergies Allergy/AdvReac Type Severity Reaction Status Date / Time cat dander Allergy itching Verified 06/17/22 23:28 eyes, sneeze, General Stated Complaint: OD/Poison TESSA: 3 Review of Systems All systems reviewed & are unremarkable except as noted in HPI and below PFSH All Active Problems (Updated 06/18/22 @ 00:08 by Derik Clayton DO) Adverse effect of cannabis (Acute) Nausea & vomiting (Acute) Hip pain, bilateral (Acute) Tachycardia (Acute) Colon cancer screening (Acute) Non-cardiac chest pain (Acute) Right hip pain (Acute) neg. 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 U/S Surgical History History of bilateral ligation of fallopian tubes History of colonoscopy Family History Mother , age 91 Hyperlipidemia Heart disease Father Alcohol abuse Sister Depression Substance abuse Brother No problems noted. Maternal Grandfather , age 80 Alcohol abuse Cancer Paternal Grandfather , 70? Cancer [place]'s lung Maternal Grandmother , 81? Cancer Paternal Grandmother , age 91 No problems noted. Social History Smoking/Tobacco Use Status: Former Tobacco Use tobacco type: cigarettes Quit Date: 11/02/75 Tobacco: How many years used: 2 Second Hand Exposure: Yes Smoking risk assessment performed?: Yes Alcohol Intake: current Alcohol Intake frequency: a few times a week Alcohol type: wine and hard liquor Details: She is currently working on cutting back Drug use: Occasionally Substance use type: marijuana Caregiver/Support person: No Household members: spouse Housing: house Communication Needs: None Do you need help understanding health information?: Never Pets and animals: No Sexually active: Yes Do you think of yourself as: straight/heterosexual Current gender identity: female What is your relationship status?: How often do you talk on the phone with friends or family?: three or more times per week How often do you get together with friends or relatives?: twice per week How often do you attend zoroastrianism or sabianist services?: decline to answer Do you belong to any clubs or organized social groups?: no Panel score (0-1 are the most socially isolated patients): 2 What type of physical activity do you participate in: walking, aerobic, swimming and other Details: gardening Duration: 15-30 minutes/day Frequency: 5-6 times per week Special asaf needs: No Agree to transfusion: No Seatbelt use: always Helmet use: Yes Helmet use: sometimes Drive intox or ride w/intox courier delivery driver: No Do you feel safe at home: Yes Do you feel safe in your relationship?: Yes Exam Narrative Exam Narrative: 1.Const: Well-nourished, Well-developed, appearing stated age 2.Eyes: PERRL, no conjunctival injection, and symmetrical lids. 3.ENT: Atraumatic external nose and ears. dry MM. Neck: Symmetric, trachea midline, No thyromegaly. 4.CVS: +S1/S2, No murmurs or gallops. Peripheral pulses 2+ and equal in all extremities. Brisk capillary refill in all extremities. 5.RESP: Unlabored respiratory effort. Clear to auscultation bilaterally. No wheezes rales or rhonchi 6.GI: Soft, Nontender/Nondistended, No hepatosplenomegaly. No guarding or rebound. 7.MSK: Normocephalic/Atraumatic, Extremities w/o deformity or ttp No cyanosis or clubbing, Normal movement of all extremities 8.Skin: Warm, Dry. No rashes or lesions. 9.Neuro: senior compliance officer II-XII grossly intact. Sensation grossly intact, no focal neurologic deficits. No vertical or rotatory or horizontal nystagmus All 6 cardinal planes of vision are fully intact. No evidence of rotatory or vertical nystagmus. The patient demonstrated a normal jzztxt-cbue-fhzeng, good dexterity. There was no evidence of dysdiadochokinesia. Patient was able to ambulate without difficulty. There was no wide-based gait. Romberg testing was normal. Nvma-vy-nyim testing was normal. Sensation was intact bilaterally as well as muscle strength bilaterally for all extremities. Patient was able to verbalize butter cup with no slurring, or miss pronunciation. 10.Psych: (AAO) x3. Appropriate mood and affect Course Vital Signs Vital signs: Vital Signs Temperature 36.0 C L 06/17/22 23:16 Pulse 73 06/17/22 23:16 Respiratory Rate 16 06/17/22 23:16 Blood Pressure 127/60 06/17/22 23:16 Pulse Oximetry 97 06/17/22 23:16 Temperature 36.0 C L 06/17/22 23:16 Temperature Source Skin 06/17/22 23:16 Pulse 73 06/17/22 23:16 Respiratory Rate 16 06/17/22 23:16 Respiratory Effort Non-Labored 06/17/22 23:34 Blood Pressure 127/60 06/17/22 23:16 Pulse Oximetry 97 06/17/22 23:16 Pain Level 0 06/17/22 23:16 Lab/Test Results Lab/Test Results: Laboratory Tests Range/Units 06/17/22 23:30 WBC (4.4-10.8) 10^3/uL 8.51 RBC (3.93-5.22) 10^6/uL 4.46 Hgb (11.2-15.7) g/dL 12.7 Hct (36.0-46.0) % 38.7 MCV (80-95) fL 87 MCH (27.0-33.0) pg 28.5 MCHC (32.0-36.0) % 32.8 RDW (11.7-14.6) % 12.7 Plt Count (130-400) 10^3/uL 178 MPV (8.0-11.0) fL 9.5 Immature Gran % 0.2 Neutrophils % 83.4 Lymphocytes % 12.7 Monocytes % 3.3 Eosinophils % 0.2 Basophils % 0.2 Nucleated RBC % (0.0-0.3) % 0.0 Absolute Neutrophils (1.2-6.7) 10^3/uL 7.09 H Absolute Lymphocytes (1.2-3.4) 10^3/uL 1.08 L Absolute Monocytes (0.1-0.8) 10^3/uL 0.28 Absolute Eosinophils (0.0-0.7) 10^3/uL 0.02 Absolute Basophils (0.0-0.2) 10^3/uL 0.02
[2022-06-18] VITALS (50 sets, daily range): BP systolic 108–128; BP diastolic 61–70; PULSE 62–64; RESP 12–25; O2SAT 96–100
[2022-06-18 00:01] LABS: ALT 22 U/L (14-59); AST 21 U/L (15-37); Albumin 3.3 g/dL (3.4-5.0); Alkaline Phosphatase 69 U/L (46-116); Anion Gap 5.6 mmol/L (3-11); BUN 14 mg/dL (7-18); Bilirubin, Total 0.7 mg/dL (0.2-1.0); CO2 30.4 mmol/L (21.0-32.0); CREATININE 0.7 mg/dL (0.55-1.02); Calcium 8.5 mg/dL (8.5-10.1); Chloride 104 mmol/L (98-107); Glucose 127 mg/dL (74-106); Lipase 65 U/L (73-393); Sodium 140 mmol/L (136-145); TSH (W/Ref FT4) 1.37 uIU/mL (0.36-3.74); Total Protein 7.6 g/dL (6.4-8.2); Troponin I < 50 ng/L (<or=60)
[2022-06-18] MEDS: Ondansetron O.D.T. 4 MG TABEF, 3 TABS/BTL PO (02:29)
== END 2022-06-18 02:31 | disposition home or self-care (01) ==
LOC: ER 06-18 02:26
PROVIDERS: Emergency Provider Student in an Organized Health Care Education/Training Program; PCP Family Medicine
DX: R11.2 Nausea with vomiting, unspecified (principal); T40.715A Adverse effect of cannabis, initial encounter; R07.89 Other chest pain; R42 Dizziness and giddiness; Z87.891 Personal history of nicotine dependence; R00.0 Tachycardia, unspecified
CPT/HCPCS: 80053; 83690; 93005; 96361; 96374; 99284; 84443; 84484; 85025; 93010; J2405

== ENCOUNTER → 2022-07-10 01:45 | Outpatient (CLI) | payer MEDICARE, SELFPAY ==
--- NOTE | 2022-07-10 11:07 | DI.RAD_ITS ---
Exam(s) XR LUMBAR SPINE COMPLETE EXAM: XR LUMBAR SPINE COMPLETE CLINICAL HISTORY: left LOW BACK PAIN, M54.50. TECHNIQUE: 2D digital imaging was performed of the lumbar spine. Five images were obtained. AP, la teral, right oblique, left oblique and L5-S1 spot views were obtained. COMPARISON: CR LUMBAR SPINE COMPLETE from 03/25/2010 FINDINGS: BONES: No fracture or destructive lesion. There are endplate osteophytes at multiple levels of the swapna mbar spine. No facet hypertrophy identified. DISKS: There is disc space narrowing at L1-L2 and L5-S1. ALIGNMENT: Lumbar spinal alignment is within normal limits. No spondylolysis or spondylolisthesis. SOFT TISSUE: Coarse calcifications are seen in the pelvis likely reflecting degenerating uterine fibr oid. IMPRESSION: Mild degenerative changes in the lumbar spine. DATA REPOSITORY: RADIATION DOSE DELIVERED:
== END ==
PROVIDERS: PCP Family Medicine; Visit Provider Family Medicine
DX: M47.816 Spondylosis without myelopathy or radiculopathy, lumbar region (principal)
CPT/HCPCS: 72110

== ENCOUNTER → 2023-08-12 01:06 | Outpatient (CLI) | payer MEDICARE, SELFPAY ==
--- NOTE | 2023-08-12 08:15 | DI.DEXA_ITS ---
Exam(s) XR DEXA BONE DENSITY W/WO VERONICA EXAM: XR DEXA BONE DENSITY W/WO VERONICA CLINICAL HISTORY: SCREENING FOR OSTEOPOROSIS IN POSTMENOPAUSAL WOMAN,Z78.0 TECHNIQUE: HoloTapactive Horizon C densitometer analysis of left hip, lumbar spine and left forearm. Lat eral survey image of the thoracic and lumbar spine. COMPARISON: CR XR LUMBAR SPINE COMPLETE from 07/10/2022 FINDINGS: Lateral view of the thoracic and lumbar spine shows no evidence of compression fractures. Bone mineral density measurements of the lumbar spine correspond to a total T-score of -1.0 at the l ower limit of normal. Bone mineral density measurements of the left hip correspond to a total T-score of -1.5. The femora l neck T-score is -1.3, in the osteopenic range.. Theleft forearm bone mineral density measurements correspond to a T-score of the distal 3rd of -2.2, in the osteopenic range.. IMPRESSION: Normal bone mineral density of the lumbar spine. Osteopenia of the hip and forearm.
== END ==
PROVIDERS: PCP Family Medicine; Visit Provider Family Medicine
DX: Z78.0 Asymptomatic menopausal state (principal); Z13.820 Encounter for screening for osteoporosis; M85.89 Other specified disorders of bone density and structure, multiple sites
CPT/HCPCS: 77080

== ENCOUNTER 2023-08-21 01:29 | Outpatient (CLI) | payer MEDICARE, SELFPAY ==
--- NOTE | 2023-08-21 09:32 | DI.MAMMO_ITS ---
Exam(s) MAMMO SCREENING EXAM: MAMMO SCREENING CLINICAL HISTORY: screening,Z12.39. TECHNIQUE: Bilateral full field digital CC and MLO mammographic images were obtained with 3D tomosyn thesis and utilizing computer aided detection (CAD). COMPARISON: Prior mammograms were reviewed. FINDINGS: Fibroglandular tissue is moderately dense. There few benign-appearing microcalcifications in evident laterally in the left breast. There are no new spiculated masses nor malignant appearing microcalcification groups. There is no significant architectural distortion nor skin thickening-retraction. IMPRESSION: Benign findings. No radiographic evidence of malignancy. BI-RADS Category 2 - Benign Findings Breast Density - Category C - Heterogeneously dense Breast density Category C or D implies that the patient has dense breast tissue. Dense breast tissue can make it harder to find cancer on a mammogram. Dense breast tissue is also associated with an incr eased risk of breast cancer. This information about the result of the mammogram report was provided to the patient to raise their awareness. Use this report when you speak with the patient about their risks for breast cancer, which includes their family history. At that time, you may recommend additional screening tests (Ultrasoun d or MRI) as these tests may add significant information. A negative radiographic report should not delay biopsy if a dominant or clinically suspicious mass is present. Up to ten percent of cancers are not identified on mammography. A negative report may reinforce clinical impression. Adenosis and dense breasts may obscure an underlying neoplasm. False positive reports average 6 to 10%. Patient will receive a letter notifying them of these results.
== END 2023-08-21 01:49 ==
LOC: DI 01:29
PROVIDERS: PCP Family Medicine; Visit Provider Family Medicine
DX: Z12.31 Encounter for screening mammogram for malignant neoplasm of breast (principal)
CPT/HCPCS: 77063; 77067

== ENCOUNTER 2024-08-23 00:54 | Outpatient (CLI) | payer MEDICARE, SELFPAY ==
--- NOTE | 2024-08-23 08:32 | DI.MAMMO_ITS ---
Exam(s) MAMMO SCREENING EXAM: MAMMO SCREENING CLINICAL HISTORY: screening,z12.39. TECHNIQUE: Bilateral full field digital CC and MLO mammographic images were obtained with 3D tomosyn thesis and utilizing computer aided detection (CAD). COMPARISON: Prior mammograms were reviewed. FINDINGS: No new findings in the right breast. In the left breast posteriorly on the MLO view there is an oval partially calcified 6 x 4 mm nodule l ocated 7 cm in from the nipple, not previously present. Spot compression view recommended. There are no malignant-appearing microcalcification groups There is no significant architectural distortion nor skin thickening-retraction. IMPRESSION: 1. No radiographic evidence of malignancy in the right breast. 2. New asymmetric density-possible nodule posteriorly in the left breast measuring 7 x 4 mm. Spot co mpression MLO view and left breast ultrasound recommended. BI-RADS Category 0 - Incomplete: Need additional imaging evaluation Breast Density - Category C - Heterogeneously dense Breast density Category C or D implies that the patient has dense breast tissue. Dense breast tissue can make it harder to find cancer on a mammogram. Dense breast tissue is also associated with an incr eased risk of breast cancer. This information about the result of the mammogram report was provided to the patient to raise their awareness. Use this report when you speak with the patient about their risks for breast cancer, which includes their family history. At that time, you may recommend additional screening tests (Ultrasoun d or MRI) as these tests may add significant information. A negative radiographic report should not delay biopsy if a dominant or clinically suspicious mass is present. Up to ten percent of cancers are not identified on mammography. A negative report may reinforce clinical impression. Adenosis and dense breasts may obscure an underlying neoplasm. False positive reports average 6 to 10%. Patient will receive a letter notifying them of these results.
== END 2024-08-23 01:14 ==
LOC: DI 00:55
PROVIDERS: PCP Family Medicine; Visit Provider Family Medicine
DX: Z12.31 Encounter for screening mammogram for malignant neoplasm of breast (principal); R92.8 Other abnormal and inconclusive findings on diagnostic imaging of breast
CPT/HCPCS: 36415; 77063; 77067; 80053; 80061

== ENCOUNTER 2024-08-23 08:27 | Outpatient (CLI) | payer MEDICARE, SELFPAY ==
[2024-08-23 08:26] LABS: ALT 15 U/L (14-59); AST 15 U/L (15-37); Albumin 3.4 g/dL (3.4-5.0); Alkaline Phosphatase 71 U/L (46-116); Anion Gap 6.2 mmol/L (3-11); BUN 13 mg/dL (7-18); Bilirubin, Total 0.95 mg/dL (0.2-1.0); CO2 30.8 mmol/L (21.0-32.0); CREATININE 0.8 mg/dL (0.55-1.02); Calcium 8.9 mg/dL (8.5-10.1); Calculated LDL 100 mg/dL (<100); Chloride 106 mmol/L (98-107); Cholesterol 221 mg/dL (<200); Estimated GFR 79.22 (mL/min/1.73m2); Glucose 98 mg/dL (74-106); HDL Cholesterol 101 mg/dL (40-60); Potassium 4.2 mmol/L (3.5-5.1); Sodium 143 mmol/L (136-145); Total Protein 7.5 g/dL (6.4-8.2); Triglyceride 100 mg/dL (<150)
== END 2024-08-23 08:28 | disposition home or self-care (01) ==
LOC: LBO 08:28
PROVIDERS: PCP Family Medicine; Visit Provider Family Medicine
DX: I10 Essential (primary) hypertension (principal)
CPT/HCPCS: 36415; 80053; 80061

== ENCOUNTER 2024-09-05 01:20 | Outpatient (CLI) | payer MEDICARE, SELFPAY ==
--- NOTE | 2024-09-05 | DI.MAMMO_ITS ---
Exam(s) MG MAMMO SCREEN CALL BACK UNI US BREAST LT LIMITED EXAM: MG MAMMO SCREEN CALL BACK UNI and U/S breast LT limited CLINICAL HISTORY: R92.8 Abn Mammo. TECHNIQUE: Craniocaudal and mediolateral oblique Full Field Digital Mammography views of the left br east with Computer Aided Diagnosis followed by Tomosynthesis and left breast ultrasound. COMPARISON: Comparison is made with prior examinations. FINDINGS: Mammography/Tomosynthesis: Masses/Architectural Distortion: There is again seen a small well-circumscribed nodule in the lower o uter quadrant of the left breast. It is unchanged in size compared to the prior examinations. No leiva spicious nodules or areas of architectural distortion are present. Microcalcifictions: No suspicious pleomorphic-type are seen. Skin Thickening/Nipple Retraction: None. Limited left breast US: Echotexture: Normal appearance of the glandular tissue. Shadowing: No suspicious foci. Cyst: None. Solid lesions: There is a well-circumscribed hypoechoic nodule seen at the 4 o'clock position of the left breast measuring 4 mm. Which has benign characteristics and may represent a benign lesion such as a fibroadenoma or intraparenchymal lymph node. Ductal dilation: None. IMPRESSION: 1. No evidence of malignancy is noted. 2. Unless there is more urgent need, follow-up screening mammography is recommended, as per [employer] guidelines. 3. The findings were discussed with the patient on the date of the examination. BI-RADS Category 2 - Benign Findings Breast Density - Category B - Scattered areas of fibroglandular density Breast density Category C or D implies that the patient has dense breast tissue. Dense breast tissue can make it harder to find cancer on a mammogram. Dense breast tissue is also associated with an incr eased risk of breast cancer. This information about the result of the mammogram report was provided to the patient to raise their awareness. Use this report when you speak with the patient about their risks for breast cancer, which includes their family history. At that time, you may recommend additional screening tests (Ultrasoun d or MRI) as these tests may add significant information. A negative radiographic report should not delay biopsy if a dominant or clinically suspicious mass is present. Up to ten percent of cancers are not identified on mammography. A negative report may reinforce clinical impression. Adenosis and dense breasts may obscure an underlying neoplasm. False positive reports average 6 to 10%. Patient will receive a letter notifying them of these results.
== END 2024-09-05 01:40 ==
LOC: DI 01:20
PROVIDERS: PCP Family Medicine; Visit Provider Family Medicine
DX: R92.8 Other abnormal and inconclusive findings on diagnostic imaging of breast (principal); Z12.31 Encounter for screening mammogram for malignant neoplasm of breast
CPT/HCPCS: 76642; 77063; 77067

== ENCOUNTER 2025-08-15 02:19 | Outpatient (CLI) | payer MEDICARE, SELFPAY ==
--- NOTE | 2025-08-15 13:55 | DI.RAD_ITS ---
Exam(s) XR FOOT LT COMPLETE EXAM: XR FOOT LT COMPLETE CLINICAL HISTORY: reason for left foot pain, M79.672. TECHNIQUE: 2D digital imaging was performed of the left foot. Three images were obtained. AP, oblique and lateral views were obtained. COMPARISON: No exams were available for comparison FINDINGS: BONES: No acute fracture is present. No bony destructive lesion is seen. There is a small enthesophyte at the posterior calcaneus. There is a tiny plantar calcaneal spur. JOINTS: No dislocation present. There are minimal degenerative changes seen in the interphalangeal joints of the foot. SOFT TISSUE: Normal. IMPRESSION: Mild degenerative changes of the left foot. Small calcaneal spurs. DATA REPOSITORY: RADIATION DOSE DELIVERED:
== END 2025-08-15 02:39 ==
LOC: DI 02:19
PROVIDERS: PCP Family Medicine; Visit Provider Podiatrist
DX: M19.072 Primary osteoarthritis, left ankle and foot (principal); M77.32 Calcaneal spur, left foot
CPT/HCPCS: 11305; 29540; 73630

== ENCOUNTER 2025-08-28 03:14 | Outpatient (CLI) | payer MEDICARE, SELFPAY ==
[2025-08-28 08:13] LABS: ALT 20 U/L (14-59); AST 16 U/L (15-37); Albumin 3.5 g/dL (3.4-5.0); Alkaline Phosphatase 71 U/L (46-116); Anion Gap 5.7 mmol/L (3-11); BUN 10 mg/dL (7-18); Bilirubin, Total 1.2 mg/dL (0.2-1.0); CO2 32.3 mmol/L (21.0-32.0); Calcium 9.2 mg/dL (8.5-10.1); Chloride 103 mmol/L (98-107); Estimated GFR 78.72 (mL/min/1.73m2); Glucose 88 mg/dL (74-106); Potassium 4.6 mmol/L (3.5-5.1); Sodium 141 mmol/L (136-145); Total Protein 7.8 g/dL (6.4-8.2)
[2025-08-29 10:18] LABS: Hepatitis C Ab w Rflx HCV PCR Negative (Negative)
== END 2025-08-28 03:15 | disposition home or self-care (01) ==
PROVIDERS: PCP Family Medicine; Visit Provider Family Medicine
DX: Z11.59 Encounter for screening for other viral diseases (principal); I10 Essential (primary) hypertension
CPT/HCPCS: 36415; 80053; 86803

== ENCOUNTER 2025-08-28 03:37 | Outpatient (CLI) | payer MEDICARE, SELFPAY ==
--- NOTE | 2025-08-28 06:15 | DI.MAMMO_ITS ---
Exam(s) MAMMO SCREENING EXAM: MAMMO SCREENING CLINICAL HISTORY: screening,z12.39 TECHNIQUE: Bilateral full field digital CC and MLO mammographic images were obtained with 3D tomosynthesis and utilizing computer aided detection (CAD). COMPARISON: Comparison is made with prior examinations. FINDINGS: Masses/Architectural Distortion: There is a new 5 mm nodule in the outer left breast on the craniocaudad view. There are no areas of architectural distortion. Microcalcifications: No suspicious pleomorphic-type are seen. Skin Thickening/Nipple Retraction: None. IMPRESSION: 1. New well-circumscribed nodule in the outer left breast on the craniocaudad view. 2. Spot compression views requested for further evaluation. Ultrasound may be indicated at that time. BI-RADS Category 0 - Incomplete: Need additional imaging evaluation Breast Density - Category B - There are scattered areas of fibroglandular density. Breast density Category C or D implies that the patient has dense breast tissue. Dense breast tissue can make it harder to find cancer on a mammogram. Dense breast tissue is also associated with an increased risk of breast cancer. This information about the result of the mammogram report was provided to the patient to raise their awareness. Use this report when you speak with the patient about their risks for breast cancer, which includes their family history. At that time, you may recommend additional screening tests (Ultrasound or MRI) as these tests may add significant information. A negative radiographic report should not delay biopsy if a dominant or clinically suspicious mass is present. Up to ten percent of cancers are not identified on mammography. A negative report may reinforce clinical impression. Adenosis and dense breasts may obscure an underlying neoplasm. False positive reports average 6 to 10%. Patient will receive a letter notifying them of these results.
== END 2025-08-28 03:57 ==
PROVIDERS: PCP Family Medicine; Visit Provider Family Medicine
DX: Z12.31 Encounter for screening mammogram for malignant neoplasm of breast (principal)
CPT/HCPCS: 36415; 77063; 77067; 80053; 86803

== ENCOUNTER → 2025-09-04 08:15 | Outpatient (BNVA) | payer MEDICARE, SELFPAY | PROVIDERS: PCP Family Medicine; Referring Provider Family Medicine; Visit Provider Podiatrist | DX: B07.0 Plantar wart (principal); G57.62 Lesion of plantar nerve, left lower limb; L60.0 Ingrowing nail; M67.01 Short Achilles tendon (acquired), right ankle; M67.02 Short Achilles tendon (acquired), left ankle; M79.671 Pain in right foot; M79.672 Pain in left foot | CPT/HCPCS: 17110; 64455; J0702; J1100 ==

== ENCOUNTER → 2025-09-05 00:47 | Outpatient (CLI) | payer MEDICARE, SELFPAY ==
--- NOTE | 2025-09-05 09:32 | DI.MAMMO_ITS ---
Exam(s) MG MAMMO SCREEN CALL BACK UNI US BREAST LT LIMITED EXAM: MG MAMMO SCREEN CALL BACK UNI and U/S breast LT limited CLINICAL HISTORY: F/U MAMMO, R92.8,WELL CIRCUMSCRIBED NODULE OUTER LT BREAST. TECHNIQUE: Craniocaudal and mediolateral oblique Full Field Digital Mammography views of the left breast with Computer Aided Diagnosis followed by Tomosynthesis and limited left breast ultrasound. COMPARISON: Comparison is made with prior examinations. FINDINGS: Mammography/Tomosynthesis: Masses/Architectural Distortion: There is a well-circumscribed nodule again seen in the outer left breast. It is seen posteriorly in the central breast on the MLO view. This has been present on prior examinations. Microcalcifictions: No suspicious pleomorphic-type are seen. Skin Thickening/Nipple Retraction: None. Limited left breast US: Echotexture: Normal appearance of the glandular tissue. Shadowing: No suspicious foci. Cyst: None. Solid lesions: At the 3 o'clock position of the left breast, there is a well- circumscribed ovoid hypoechoic nodule which appears to correspond to the mammographic abnormality. This is likely a benign lesion. This may represent a cyst or small fibroadenoma. Ductal dilation: None. IMPRESSION: 1. No evidence of malignancy is noted. 2. Unless there is more urgent need, follow-up screening mammography is recommended, as per [place] [employer] guidelines. 3. The findings were discussed with the patient on the date of the examination. BI-RADS Category 2 - Benign Findings Breast Density - Category B - There are scattered areas of fibroglandular density. Breast density Category C or D implies that the patient has dense breast tissue. Dense breast tissue can make it harder to find cancer on a mammogram. Dense breast tissue is also associated with an increased risk of breast cancer. This information about the result of the mammogram report was provided to the patient to raise their awareness. Use this report when you speak with the patient about their risks for breast cancer, which includes their family history. At that time, you may recommend additional screening tests (Ultrasound or MRI) as these tests may add significant information. A negative radiographic report should not delay biopsy if a dominant or clinically suspicious mass is present. Up to ten percent of cancers are not identified on mammography. A negative report may reinforce clinical impression. Adenosis and dense breasts may obscure an underlying neoplasm. False positive reports average 6 to 10%. Patient will receive a letter notifying them of these results.
== END ==
LOC: DI 00:47
PROVIDERS: PCP Family Medicine; Visit Provider Family Medicine
DX: Z12.31 Encounter for screening mammogram for malignant neoplasm of breast (principal); N63.25 Unspecified lump in the left breast, overlapping quadrants
CPT/HCPCS: 76642; 77063; 77067